=== PATIENT | male | born 1965 | race Caucasian/White ===

== ENCOUNTER 2016-12-01 15:05 | Emergency (ER) | payer OTHER ==
--- NOTE | ~2016-12-01 | EKG ---
PATIENT: KAREN RHODES UNIT #: [id number] Ventricular Rate: 113 BPM Atrial Rate: 113 BPM P-R Interval: 138 ms QRS Duration: 80 ms Q-T Interval: 332 ms QTC Calculation(Bezet): 455 ms P [place]: 62 degrees Calculated R [place]: 35 degrees Calculated T [place]: 48 degrees Diagnosis Line: Sinus tachycardia Diagnosis Line: Otherwise normal ECG Diagnosis Line: No previous ECGs available Diagnosis Line: Confirmed by JULIO SCHMIDT MD ([id number]) on 12/02/2016 Diagnosis Line: 4:31:55 PM INTERPRETING MD: ROXANA HODGES
--- NOTE | ~2016-12-01 | CR72 ---
[facility]. [facility] A Service of [facility] & [facility] RADIOLOGY TEXT RESULTS PATIENT: KAREN RHODES LOCATION: SED : 63 UNIT #: [id number] AGE: [address]: Faith Calixto SEX: M ORDER DR: [id number] [address] [address] [id number] MR#: [id number] Acc #: [id number] NAME: KAREN RHODES : 1965 SEX: M STUDY DATE/TIME: 12/01/2016 15:28 UNIT: SED ROOM: STUDY DESCRIPTION: CR Chest Single View Portable Attending Physician: Faith Calixto Pa-C Ordering Physician: Rinku Rodríguez M.D. Primary Care Physician: Daniel Mancilla M.D. MEDICAL IMAGING REPORT This report is preliminary unless electronic signature is present. EXAM Single view of the chest, dated 12/01/2016. COMPARISON Chest 2 views dated 04/15/2011. HISTORY Left-sided chest pain and left arm cramping this afternoon. Diabetic. Hyperlipidemia. FINDINGS Single view of the chest was obtained. A single AP view of the chest shows both lungs to be clear. The heart is normal in size. The mediastinal contour is normal. No significant bone abnormalities are seen. IMPRESSION Normal AP chest. Dictated by... Remy Mosher M.D. THIS IS AN ELECTRONICALLY VERIFIED REPORT Remy Mosher M.D. at 12/02/2016 3:03 PM CPR/jt TD: 12/02/2016 00:16 JOB #: [id number] MEDICAL IMAGING REPORT Page 1 of 1
[~2016-12-01 15:05] MED LIST: CLEOCIN HCL300 M1 PO; IBUPROFEN800 MG PO
[2016-12-01] MEDS ORDERED: CHOLESTEROL PILL (15:16)
[2016-12-01] MEDS ORDERED: BP PILL (15:16)
[2016-12-01] MEDS ORDERED: INSULIN (15:16)
[2016-12-01 15:40] LABS: BASOPHIL# 0.1 X10e3 (0-0.3); BASOPHIL% 1.1 % (0-2.5); EOSINOPHIL# 0.1 X10e3 (0-0.7); EOSINOPHIL% 0.8 % (0.0-7.0); HEMATOCRIT 44.3 % (38.0-50.0); HEMOGLOBIN 15.6 gm/dL (13.0-16.0); LYMPHOCYTE# 2.6 X10e3 (1.0-3.5); LYMPHOCYTE% 32.5 % (17.0-45.0); MEAN CELL VOLUME 93.7 FL (83-96); MEAN CORPUSCULAR HGB CONC 35.2 g/dL (30-36); MEAN PLATELET VOLUME 7.2 FL (6.5-11.5); MONOCYTE# 0.6 X10e3 (0-1.0); MONOCYTE% 7.6 % (3.0-12.0); NEUTROPHIL# 4.6 X10e3 (1.5-7.1); PLATELET COUNT 274 X10e3 (140-420); RED BLOOD COUNT 4.73 X10e (3.90-5.60); RED CELL DISTRIBUTION WIDTH 12.9 % (11.0-15.5); WHITE BLOOD COUNT 7.9 X10e3 (4.0-10.5)
[2016-12-01 15:43] LABS: DIFF IND NO
[2016-12-01 15:45] LABS: PROTHROMBIN TIME (PATIENT) 11.6 SECONDS (9.5-12.4)
[2016-12-01 15:51] LABS: ALBUMIN SERUM 4.1 g/dL (3.5-5.0); BILIRUBIN, DIRECT 0.1 mg/dL (0.0-0.2); BILIRUBIN,INDIRECT 0.3 mg/dL (0.0-0.9); BILIRUBIN,TOTAL 0.4 mg/dL (0.2-2.0); BUN/CREATININE RATIO 21.25; CALCIUM SERUM 9.1 mg/dL (8.4-10.2); CREATININE SERUM 0.8 mg/dL (0.6-1.4); GLOM FILT RATE Estimated 103.5 mL/min (>60); POTASSIUM 3.6 mmol/L (3.5-5.1); PROTEIN TOTAL SERUM 7.2 g/dL (6.0-8.3)
[2016-12-01 17:10] LABS: URINE SOURCE CLEAN CATCH
[2016-12-01 17:13] LABS: URINE APPEARANCE CLEAR; URINE BILIRUBIN NEG (NEG); URINE BLOOD NEG (NEG); URINE COLOR YELLOW; URINE GLUCOSE NEG (NORM); URINE KETONE NEG (NEG); URINE LEUKOCYTE ESTERASE NEG (NEG); URINE NITRATE NEG (NEG); URINE PROTEIN NEG (NEG); URINE SPECIFIC GRAVITY 1.015 (1.003-1.035); URINE UROBILINOGEN 0.2 MG/DL (NORM)
[2016-12-01 17:50] LABS: POC - CKMB 2.3 ng/mL (0.0-7.9); POC - TROPONIN <0.05 ng/mL (<=0.05)
[2016-12-01 17:54] LABS: MICRO INDICATED? NO
[2016-12-03 05:20] LABS: POC - CKMB 2.8 ng/mL (0.0-7.9); POC - MYOGLOBIN 90.5 ng/mL (0.0-169.0); POC - TROPONIN <0.05 ng/mL (<=0.05)
== END 2016-12-01 18:29 | disposition home or self-care (01) ==
LOC: SED 15:05
PROVIDERS: Physician Assistant Medical
DX: K21.9 Gastro-esophageal reflux disease without esophagitis (principal); R51 Headache; M54.9 Dorsalgia, unspecified; M25.512 Pain in left shoulder; E11.9 Type 2 diabetes mellitus without complications; E78.5 Hyperlipidemia, unspecified; I10 Essential (primary) hypertension; F17.210 Nicotine dependence, cigarettes, uncomplicated; Z88.0 Allergy status to penicillin
CPT/HCPCS: 36415; 71010; 80048; 80076; 81003; 82553; 83874; 84484; 85025; 85610; 85730; 93005; 96374; 99285; C9113